=== PATIENT | male | born 1995 | race Caucasian/White ===

== ENCOUNTER 2017-08-20 18:27 | Emergency (ER) | payer BC ==
[~2017-08-20] VITALS: Ht 188 cm; Wt 91.3 kg
[2017-08-20 18:33] VITALS: Ht 188 cm; Wt 91.3 kg
--- NOTE | 2017-08-20 19:39 | EMERGENCY ROOM VISIT NOTE ---
History Report prepared by Lorena: Joaquín Blnaco Under the Supervision of: Dr. Adelia Guzman M.D. First contact with patient: 19:29 Chief Complaint: BURN (MINOR) Stated Complaint: BURNED HAND- wc History of Present Illness The patient is a 22 year old male who presents to the Emergency Room with complaints of a minor burn to the left hand that occurred about 2 hours ago. He rates his pain a 10/10 in severity. 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 He bent down to replace the gas cap on the motor when he rested his hand on the machine. He did not realize it was as hot as it was, and he burnt his hand. The only relief he has from the pain is when he submerges his hand in water. He has been doing this for the past 2 hours. He denies any other injuries or complaints. His Tetanus immunization is up to date. Source of History: patient Onset: 2 hours ago Position: hand (left) Symptom Intensity: 10/10 Quality: burning Timing: constant Modifying Factors (Relieving): other (Water) Note: He denies any other symptoms. Review of Systems See HPI for pertinent positives & negatives. A total of 10 systems reviewed and were otherwise negative. Past Medical & Surgical Medical Problems: (1) No Known Active Medical Problems Family History Patient reports no known family medical history. Social History Smoking Status: Never Smoker Smokeless Tobacco Use: No Drug Use: none Marital Status: single Occupation Status: student Current/Historical Medications Scheduled Multivitamins/Minerals (Mvi With Minerals), 1 TAB PO DAILY Scheduled PRN Hydrocodone/Acetaminophen 5MG/325MG ([place] 5MG/325MG), 1-2 TABLET PO Q6 PRN for Pain Allergies Coded Allergies: No Known Allergies (Unverified , 08/20/17) Physical Exam Vital Signs Date Time Temp Pulse Resp B/P (MAP) Pulse Ox O2 Delivery O2 Flow Rate FiO2 08/20/17 20:56 37.1 92 18 132/78 98 08/20/17 20:38 92 18 132/78 98 Room Air 08/20/17 19:28 98 Room Air 08/20/17 18:33 37.1 98 18 150/88 98 Room Air Physical Exam Vital signs reviewed. General: Well-appearing male, with some discomfort. HEENT: No scleral icterus, PERRLA, neck supple. Atraumatic. Cardiovascular: Regular rate and rhythm, no extra sounds. Pulmonary: Clear to auscultation bilaterally, normal work of breathing. Abdomen: Soft, nontender, nondistended, positive bowel sounds. Musculoskeletal: No peripheral edema. First degree duffy to the palmar surface of the left hand in the pattern of a grill surface, primarily to the thenar and hypothenar eminence, no significant blistering appreciated, there is some second degree burn noted primarily to the thenar eminence. Neurologic: Patient awake alert and oriented x 3 Skin: Warm, dry, no rash Medical Decision & Procedures Medications Administered Medications (Trade) Dose Ordered Sig/Juan Route Start Time Stop Time Status Last Admin Dose Admin Acetaminophen/ Hydrocodone Bitart ([place] 5/325mg Home Pack) 1 homepack UD ONCE PO 08/20/17 21:00 08/20/17 21:01 DC 08/20/17 20:55 1 HOMEPACK ED Course 1928: Past medical records reviewed. The patient was evaluated in room B6. A complete history and physical examination was performed. 1939: Ordered [place] 7.5/325 Tab 1 Tab PO 2007: I spoke to Dr. Chapman of Burn Surgery at this time. We discussed the patient's case. They will see the patient in their clinic later this week. 2099: Ordered Hydrocodone Bitart/ Acetaminophen 1 homepack PO 2109: Upon reevaluation, the patient appeared to have improvement of his symptoms. I discussed findings with him. He verbalized agreement of the treatment plan. He was discharged home. Medical Decision Differential diagnoses include first degree burn, second degree burn, and third degree burn. This patient was evaluated and appeared to be in some discomfort. The patient was ordered a [place] tablet but declined as he is driving. I discussed the patient's case with Dr. Hyde of burn surgery at [facility]. He has recommended Xeroform gauze and a bulky dressing. He has recommended outpatient follow-up in clinic. The patient is up-to-date with his immunizations. He was given plenty of dressing supplies for daily dressings. He was given instruction in the phone number for the burn clinic to establish an appointment first thing in the morning. He and his friend were informed of the plan. He agrees. Will return to the ER for worsening of symptoms or any medical concerns. Medication Reconcilliation Current Medication List: was personally reviewed by me Blood Pressure Screening Patient's blood pressure: Elevated blood pressure Blood pressure disposition: Elevated BP felt to be situational Consults Time Called: 2003 Consulting Physician: Dr. Chapman - Burn Surgery Returned Call: 2007 We discussed the patient's case. They will see the patient in their clinic later this week. Impression Primary Impression: Burn of palm of hand, left, second degree Scribe Attestation The scribe's documentation has been prepared under my direction and personally reviewed by me in its entirety. I confirm that the note above accurately reflects all work, treatment, procedures, and medical decision making performed by me. Departure Information Dispostion Home / Self-Care Prescriptions Hydrocodone/Acetaminophen 5MG/325MG ([place] 5MG/325MG) Tab 1-2 TABLET PO Q6 Y for Pain, #20 TAB Prov: Adelia Guzman M.D. 08/20/17 Referrals [facility] (PCP) Forms HOME CARE DOCUMENTATION FORM, IMPORTANT VISIT INFORMATION Patient Instructions My [facility] Additional Instructions Diagnosis: First and second-degree duffy to the left hand. Wash the hand with mild soap and water once daily, apply Xeroform gauze and a bulky dressing. Follow-up with the burn clinic as directed. Please contact them tomorrow after 8 AM at [phone]. [place] 5/325, one to 2 tabs every 6 hours as needed for severe pain. Do not drive or take Tylenol with this medication. Ibuprofen 600 mg every 6 hours as needed for less severe pain with food. Return to the emergency department for worsening of symptoms or any medical concerns. Problem Qualifiers Primary Impression: Burn of palm of hand, left, second degree Encounter type: initial encounter Qualified Codes: T23.252A - Burn of second degree of left palm, initial encounter
[2017-08-20] MEDS ORDERED: HYDROCODONE/ACETAMINOPHEN 7.5/325MG TAB PO STA (19:40)
[2017-08-20] MEDS ORDERED: MULT-513 PO (20:34)
[2017-08-20] MEDS ORDERED: HYDR-5688 PO (20:45)
[2017-08-20 20:56] VITALS: BP 132/78; PULSE 92; TEMP 37.1; O2SAT 98
[2017-08-20] MEDS ORDERED: NORCO 5/325MG HOME PACK PO ONE (21:00)
== END 2017-08-20 20:57 | disposition home or self-care (01) ==
LOC: C.EDB 18:31
DX: T23.252A Burn of second degree of left palm, initial encounter (principal); X17.XXXA Contact with hot engines, machinery and tools, initial encounter; Y99.0 Civilian activity done for income or pay